=== PATIENT | female | born 1960 | race Caucasian/White ===

== ENCOUNTER 2017-12-05 09:15 | Emergency (ER) | payer MEDICARE, BC ==
[2017-12-05] MEDS ORDERED: ONDANSETRON 4 MG TAB.RAPDIS PO ONE ×2 (09:44→14:47)
[2017-12-05] MEDS ORDERED: FENTANYL CITRATE INJ/PF 100 MCG/2 ML AMPUL IM ONE (09:44)
[2017-12-05] MEDS ORDERED: NORMAL SALINE 1000 ML 1,000 ML IV ONE (09:45)
[2017-12-05] MEDS ORDERED: FENTANYL CITRATE INJ/PF 100 MCG/2 ML AMPUL IV ONE (09:45)
--- NOTE | 2017-12-05 09:45 | ER Document Report ---
ED Medical Screen (RME) - General Chief Complaint: Epigastric Pain Stated Complaint: STOMACH PAIN Time Seen by Provider: 12/05/17 09:43 Notes: RAPID MEDICAL EVALUATION DISCLOSURE I have seen this patient as part of a Rapid Medical Evaluation and, if applicable, placed any initially appropriate orders. The patient will be seen and fully evaluated, including a full history and physical exam, by a provider ( in Main ED or Fast Track) when a room becomes available. 56-year-old female here with complaints of constant nonradiating epigastric abdominal pain that started last night, approximately 30 minutes after eating ice cream. She has not tried anything for the symptoms. She does have some nausea and dry heaving but no active vomiting. She does not have any fevers chills dysuria diarrhea. She does still have her appendix and gallbladder. Denies any prior history of pancreatitis colitis diverticulitis. EXAM Mild to moderate epigastric TTP Minimal left upper quadrant TTP TRAVEL OUTSIDE OF THE [place] IN LAST 30 DAYS: No - Related Data Allergies/Adverse Reactions: No Known Allergies Allergy (Unverified 12/05/17 09:17) Physical Exam - Vital signs Vitals: Temp Pulse Resp BP Pulse Ox 97.6 F 120 H 20 142/76 H 100 12/05/17 09:26 12/05/17 09:26 12/05/17 09:26 12/05/17 09:26 12/05/17 09:26 Course - Vital Signs Vital signs: Temp Pulse Resp BP Pulse Ox 97.6 F 120 H 20 142/76 H 100 12/05/17 09:26 12/05/17 09:26 12/05/17 09:26 12/05/17 09:26 12/05/17 09:26
[2017-12-05 10:23] LABS: APPEARANCE,URINE CLEAR; BILIRUBIN,URINE NEGATIVE (NEGATIVE); GLUCOSE, URINE >=500 mg/dL (NEGATIVE); KETONES,URINE 80 mg/dL (NEGATIVE); LEUKOCYTE ESTERASE,URINE NEGATIVE (NEGATIVE); NITRITE,URINE NEGATIVE (NEGATIVE); PROTEIN,URINE NEGATIVE (NEGATIVE); URINE SPECIFIC GRAVITY 1.038
[2017-12-05 10:24] LABS: COLOR,URINE YELLOW
--- NOTE | 2017-12-05 10:45 | ER Document Report ---
ED General - General Chief Complaint: Epigastric Pain Stated Complaint: STOMACH PAIN Time Seen by Provider: 12/05/17 09:43 Mode of Arrival: Ambulatory Information source: Patient, Relative Notes: 56-year-old female with chronic neck and back pain presents with complaint of abdominal pain that started 12 hours prior to arrival. Patient's pain is located in the epigastric region, described as a constant throbbing pain without radiation. Patient has had associated nausea, dry heaving but no vomiting. Her last bowel movement was yesterday. She denies any black or bloody stools. She denies sick contacts. Pain started approximately 30 minutes after eating ice cream. She denies prior similar symptoms, alcohol use , history of pancreatitis. TRAVEL OUTSIDE OF THE [place] IN LAST 30 DAYS: No - HPI Onset: Yesterday Quality of pain: Stabbing Severity: Moderate Associated symptoms: Nausea. denies: Chest pain, Diarrhea, Fever, Vomiting, Shortness of breath Exacerbated by: Denies Relieved by: Denies Similar symptoms previously: No Recently seen / treated by doctor: No - Related Data Allergies/Adverse Reactions: No Known Allergies Allergy (Unverified 12/05/17 09:17) Past Medical History - General Information source: Patient - Social History Smoking Status: Never Smoker Chew tobacco use (# tins/day): No Frequency of alcohol use: None Drug Abuse: None Lives with: Family Family History: Reviewed & Not Pertinent Patient has suicidal ideation: No Patient has homicidal ideation: No Renal/ Medical History: Denies: Hx Peritoneal Dialysis Review of Systems - Review of Systems Notes: REVIEW OF SYSTEMS: CONSTITUTIONAL : Denies fever, chills, or sweats. Denies recent illness. Denies weight loss, recent hospitalizations. EENT: Denies visual changes, eye pain. Denies nasal or sinus congestion or discharge. Denies sore throat, oral lesions, difficulty swallowing. CARDIOVASCULAR: Denies chest pain. Denies palpitations. Denies lower extremity edema. RESPIRATORY: Denies cough, cold, or chest congestion. Denies shortness of breath, wheezing. GASTROINTESTINAL: Denies abdominal pain or distention. Denies nausea, vomiting , or diarrhea. Denies blood in vomitus, stools, or per rectum. Denies black, tarry stools. Denies constipation. GENITOURINARY: Denies difficulty urinating, painful urination, frequency, blood in urine, or vaginal discharge. MUSCULOSKELETAL: Denies back or neck pain or stiffness. Denies joint pain or swelling. SKIN: Denies rash, lesions or sores. HEMATOLOGIC : Denies easy bruising or bleeding. LYMPHATIC: Denies swollen glands. NEUROLOGICAL: Denies confusion or altered mental status. Denies passing out or loss of consciousness. Denies dizziness or lightheadedness. Denies headache. Denies weakness or paralysis. Denies problems difficulty with ambulation, slurred speech. Denies sensory loss, numbness, or tingling. Denies seizures. PSYCHIATRIC: Denies anxiety or stress. Denies depression, suicidal ideation, or homicidal ideation. Denies visual or auditory hallucinations. Physical Exam - Vital signs Vitals: Temp Pulse Resp BP Pulse Ox 97.6 F 120 H 20 142/76 H 100 12/05/17 09:26 12/05/17 09:26 12/05/17 09:26 12/05/17 09:26 12/05/17 09:26 - Notes Notes: PHYSICAL EXAMINATION: GENERAL: Well-appearing, well-nourished and in no acute distress. HEAD: Atraumatic, normocephalic. EYES: Pupils equal round and reactive to light, extraocular movements intact, conjunctiva are normal. ENT: Nares patent, oropharynx clear without exudates. Moist mucous membranes. NECK: Normal range of motion, supple without lymphadenopathy LUNGS: Breath sounds clear to auscultation bilaterally and equal. No wheezes rales or rhonchi. HEART: Regular rate and rhythm without murmurs ABDOMEN: Soft, tenderness to palpation in the epigastric region, nondistended abdomen. No guarding, no rebound. No masses appreciated. Female : deferred Musculoskeletal: Normal range of motion, no pitting or edema. No cyanosis. NEUROLOGICAL: Cranial nerves grossly intact. Normal speech, normal gait. Normal sensory, motor exams PSYCH: Normal mood, normal affect. SKIN: Warm, Dry, normal turgor, no rashes or lesions noted. Course - Re-evaluation Re-evalutation: Laboratory 12/05/17 12/05/17 12/05/17 09:59 10:45 10:45 WBC 7.0 RBC 4.73 Hgb 14.6 Hct 41.6 MCV 88 MCH 30.8 MCHC 35.0 RDW 14.7 H Plt Count 52 L Seg Neutrophils % 85.1 H Lymphocytes % 11.7 L Monocytes % 3.0 Eosinophils % 0.1 Basophils % 0.1 Absolute Neutrophils 6.0 Absolute Lymphocytes 0.8 Absolute Monocytes 0.2 Absolute Eosinophils 0.0 Absolute Basophils 0.0 Sodium 140.9 Potassium 3.1 L Chloride 101 Carbon Dioxide 26 Anion Gap 14 BUN 13 Creatinine 0.48 L Est GFR ( Amer) > 60 Est GFR (Non-Af Amer) > 60 Glucose 348 H Calcium 9.5 Total Bilirubin 5.1 H Direct Bilirubin 3.5 H Neonat Total Bilirubin Not Reportable Neonat Direct Bilirubin Not Reportable Neonat Indirect Bili Not Reportable AST 364 H ALT 186 H Alkaline Phosphatase 174 H Total Protein 6.4 Albumin 3.9 Lipase 184.2 Urine Color YELLOW Urine Appearance CLEAR Urine pH 8.0 Ur Specific Strandquist 1.038 Urine Protein NEGATIVE Urine Glucose (UA) >=500 H Urine Ketones 80 H Urine Blood SMALL H Urine Nitrite NEGATIVE Urine Bilirubin NEGATIVE Urine Urobilinogen 4.0 H Ur Leukocyte Esterase NEGATIVE Urine WBC (Auto) 6 Urine RBC (Auto) 16 Urine Bacteria (Auto) TRACE Squamous Epi Cells Auto 2 Urine Mucus (Auto) RARE Urine Ascorbic Acid NEGATIVE Abdomen Ultrasound 12/05/17 11:54 IMPRESSION: No gallstones. There was questionable small amount of pericholecystic fluid and questionable thickening of the gallbladder wall. There was no positive sonographic Kim sign. Abdomen/Pelvis CT 12/05/17 12:15 IMPRESSION: Cirrhosis and portal hypertension with trace right upper quadrant ascites Mild retroperitoneal inflammation around the pancreas, worrisome for acute pancreatitis 56-year-old female with chronic neck and back pain presents with complaint of abdominal pain that started 12 hours prior to arrival. Patient's pain is located in the epigastric region, described as a constant throbbing pain without radiation. Patient has had associated nausea, dry heaving but no vomiting. Her last bowel movement was yesterday. She denies any black or bloody stools. Patient is tachycardic but afebrile. She does not appear toxic or dehydrated but she does appear to be in a significant amount of pain. Patient did receive IV Dilaudid, Reglan during her ED course. 12/05/17 14:46 Patient reevaluated and reports improvement of her pain and nausea. She was informed of the CT findings of pancreatitis and the ultrasound findings that were suspicious for cholecystitis. Admission was discussed with the patient who is declining because she is on her way home to [place] tomorrow. She is alert and oriented 3, capable of making decisions and family is at the bedside. Patient will leave AGAINST MEDICAL ADVICE. Shortly after patient was discharged I received a call from [facility] informing me that patient had recently filled a prescription for 90 Percocets. Patient encouraged to return if she changes her mind or her pain worsens. 12/05/17 16:12 12/05/17 16:12 - Vital Signs Vital signs: Temp Pulse Resp BP Pulse Ox 97.6 F 120 H 23 H 136/85 H 100 12/05/17 09:26 12/05/17 09:26 12/05/17 14:40 12/05/17 14:40 12/05/17 14:40 - Laboratory Result Diagrams: 12/05/17 10:45 12/05/17 10:45 Laboratory results interpreted by me: 12/05/17 12/05/17 12/05/17 09:59 10:45 10:45 RDW 14.7 H Plt Count 52 L Seg Neutrophils % 85.1 H Lymphocytes % 11.7 L Potassium 3.1 L Creatinine 0.48 L Glucose 348 H Total Bilirubin 5.1 H Direct Bilirubin 3.5 H AST 364 H ALT 186 H Alkaline Phosphatase 174 H Urine Glucose (UA) >=500 H Urine Ketones 80 H Urine Blood SMALL H Urine Urobilinogen 4.0 H - Diagnostic Test Radiology reviewed: Image reviewed, Reports reviewed - EKG Interpretation by Me EKG shows normal: Sinus rhythm Rate: Tachycardia Rhythm: NSR Discharge - Discharge Clinical Impression: Cholecystitis-concern for, Hyperglycemia, Tachycardia, Elevated liver enzymes Pancreatitis Qualifiers: Chronicity: acute Pancreatitis type: unspecified pancreatitis type Acute pancreatitis complication: unspecified Qualified Code(s): K85.90 - Acute pancreatitis without necrosis or infection, unspecified Liver cirrhosis Qualifiers: Hepatic cirrhosis type: unspecified hepatic cirrhosis Ascites presence: with ascites Qualified Code(s): K74.60 - Unspecified cirrhosis of liver Condition: Good Disposition: AGAINST MEDICAL ADVICE Instructions: Abdominal Pain ([facility]), Cirrhosis ([facility]), Hyperglycemia ([facility]), Pancreatitis ([facility]) Additional Instructions: Please avoid food. Maintain a clear liquid diet until you are evaluated by her physicians at home. Please return immediately to the emergency department if you experience worsening pain or decide that you want to be admitted. Prescriptions: Hydrocodone/Acetaminophen [Patton 5-325 mg Tablet] 1 tab PO Q4H #12 tablet Promethazine HCl 25 mg PO Q8H PRN #10 tablet PRN Reason: Forms: Elevated Blood Pressure
[2017-12-05 11:19] LABS: ALANINE AMINOTRANSFERASE 186 U/L (9-52); ALBUMIN 3.9 g/dL (3.5-5.0); ALKALINE PHOSPHATASE 174 U/L (38-126); ANION GAP 14 (5-19); ASPARTATE AMINO TRANSFERASE 364 U/L (14-36); BILIRUBIN,DIRECT 3.5 mg/dL (0.0-0.4); BILIRUBIN,TOTAL 5.1 mg/dL (0.2-1.3); BLOOD UREA NITROGEN 13 mg/dL (7-20); CALCIUM 9.5 mg/dL (8.4-10.2); CARBON DIOXIDE 26 mmol/L (22-30); CHLORIDE 101 mmol/L (98-107); GLUCOSE 348 mg/dL (75-110); LIPASE 184.2 U/L (23-300); POTASSIUM 3.1 mmol/L (3.6-5.0); SODIUM 140.9 mmol/L (137-145); TOTAL PROTEIN 6.4 g/dL (6.3-8.2)
[2017-12-05] MEDS ORDERED: HYDROMORPHONE HCL INJ/PF 2 MG/ML AMPULE IV ONE ×2 (11:25→14:47)
[2017-12-05] MEDS ORDERED: POTASSIUM CHLORIDE 10 MEQ CAPSULE.ER PO ONE (12:00)
[2017-12-05] MEDS: NORMAL SALINE 1000 ML 1,000 ML IV PRN ×2 (12:05→12:10)
[2017-12-05 12:19] LABS: ABSOLUTE LYMPHOCYTES (AUTO) 0.8 10^3/uL (0.5-4.7); ABSOLUTE MONOCYTES (AUTO) 0.2 10^3/uL (0.1-1.4); BASOPHILS % (AUTO) 0.1 % (0-2); EOSINOPHILS % (AUTO) 0.1 % (0-6); HEMATOCRIT 41.6 % (36.0-47.0); HEMOGLOBIN 14.6 g/dL (12.0-15.5); LYMPHOCYTES % (AUTO) 11.7 % (13-45); MEAN CORPUSCULAR HEMOGLOBIN 30.8 pg (27.0-33.4); MEAN CORPUSCULAR VOLUME 88 fl (80-97); RED BLOOD COUNT 4.73 10^6/uL (3.72-5.28); RED CELL DISTRIBUTION WIDTH 14.7 % (11.5-14.0); SEGMENTED NEUTROPHILS % (AUTO) 85.1 % (42-78); TOTAL CELLS COUNTED % (AUTO) 100 %
[2017-12-05 12:50] LABS: PLATELET COUNT 52 10^3/uL (150-450)
--- NOTE | 2017-12-05 13:21 | RADIOLOGY REPORT (SQ) ---
EXAM DESCRIPTION: CT ABD/PELVIS WITH IV ONLY COMPLETED DATE/TIME: 12/05/2017 12:51 pm REASON FOR STUDY: epigastric abd pain COMPARISON: None. TECHNIQUE: CT scan of the abdomen and pelvis performed using helical scanning technique with dynamic intravenous contrast injection. No oral contrast. Images reviewed with lung, soft tissue, and bone windows. Reconstructed coronal and sagittal MPR images reviewed. Delayed images for evaluation of the urinary system also acquired. All images stored on PACS. All CT scanners at this facility use dose modulation, iterative reconstruction, and/or weight based d osing when appropriate to reduce radiation dose to as low as reasonably achievable (ALARA). [facility]: Dose Right [facility]: CareDose [facility]: Dose Right [facility]: Teradose 4D [facility]: Widemile CONTRAST TYPE AND DOSE: contrast/concentration: Isovue 370.00 mg/ml; Total Contrast Delivered: 83.0 ml; Total Saline Delivered: 68.0 ml RENAL FUNCTION: Creatinine 0.48 RADIATION DOSE: CT Rad equipment meets quality standard of care and radiation dose reduction techniq ues were employed. CTDIvol: 10.5 - 15.2 mGy. DLP: 1420 mGy-cm.. LIMITATIONS: None. FINDINGS: LOWER CHEST: No significant findings. No nodules or infiltrates. LIVER: Nodular contour, recannulized umbilical vein from cirrhosis and portal hypertension. SPLEEN: Splenomegaly, 14 cm in length. Upper abdominal varices at the GE junction and splenic hilum. PANCREAS: There is inflammation in the retroperitoneum around the pancreatic head and neck, question acute pancreatitis. No peripancreatic fluid collection. Nondilated pancreatic duct GALLBLADDER: Distended, no gross gallstones ADRENAL GLANDS: No significant masses or asymmetry. RIGHT KIDNEY AND URETER: No solid masses. No significant calcifications. No hydronephrosis or hyd roureter. LEFT KIDNEY AND URETER: No solid masses. No significant calcifications. No hydronephrosis or hydr oureter. AORTA AND VESSELS: No aneurysm. No dissection. Renal arteries, SMA, celiac without stenosis. RETROPERITONEUM: No retroperitoneal adenopathy, hemorrhage or masses. BOWEL AND PERITONEAL CAVITY: No CT evidence bowel obstruction or diverticulitis. There is a small am ount of ascites in the right upper quadrant in the gallbladder fossa and right subphrenic space APPENDIX: Normal. PELVIS: No mass. Trace cul-de-sac free fluid. Normal bladder. Normal size uterus and ovaries ABDOMINAL WALL: No masses. No hernias. BONES: No significant or acute findings. OTHER: No other significant finding. IMPRESSION: Cirrhosis and portal hypertension with trace right upper quadrant ascites Mild retroperitoneal inflammation around the pancreas, worrisome for acute pancreatitis TECHNICAL DOCUMENTATION: JOB ID: [id number] Quality ID # [id number]: Final reports with documentation of one or more dose reduction techniques (e.g., Au tomated exposure control, adjustment of the mA and/or kV according to patient size, use of iterative reconstruction technique) 2010 [email or web address]- All Rights Reserved Reading location - IP/workstation name: [email or web address]
--- NOTE | 2017-12-05 13:35 | EKG REPORT ---
SEVERITY:- BORDERLINE ECG - SINUS TACHYCARDIA PROBABLE LEFT ATRIAL ABNORMALITY BORDERLINE LEFT AXIS DEVIATION NONSPECIFIC ST-T CHANGES DIFFUSE LEADS. : Confirmed by: Billy Son MD 05-Dec-2017 13:34:40
--- NOTE | 2017-12-05 13:42 | RADIOLOGY REPORT (SQ) ---
EXAM DESCRIPTION: U/S ABDOMEN LIMITED W/O DOP COMPLETED DATE/TIME: 12/05/2017 1:10 pm REASON FOR STUDY: pain ruq COMPARISON: None. TECHNIQUE: Dynamic and static grayscale images acquired of the abdomen and recorded on PACS. Additio compa selected color Doppler and spectral images recorded. LIMITATIONS: None. FINDINGS: PANCREAS: No masses. Visualized pancreatic duct normal caliber. LIVER: 14 cm. Normal echotexture. No masses. LIVER VASCULATURE: Normal directional flow of the main portal vein and hepatic veins. GALLBLADDER: No gallstones are appreciated. There is a small amount of pericholecystic fluid and que stionable thickening of the gallbladder wall. ULTRASOUND-DETECTED KIM'S SIGN: Negative. INTRAHEPATIC DUCTS AND COMMON DUCT: CBD and intrahepatic ducts normal caliber. No filling defects. INFERIOR VENA CAVA: Normal flow. AORTA: No aneurysm. The distal abdominal aorta was obscured by gas. RIGHT KIDNEY: Normal size. Normal echogenicity. No solid or suspicious masses. No hydronephrosis. No calcifications. PERITONEAL AND RIGHT PLEURAL SPACE: No ascites or effusions. OTHER: No other significant findings. IMPRESSION: No gallstones. There was questionable small amount of pericholecystic fluid and questio nable thickening of the gallbladder wall. There was no positive sonographic Kim sign. TECHNICAL DOCUMENTATION: JOB ID: [id number] [employer]- All Rights Reserved Reading location - IP/workstation name: [email or web address]
[2017-12-05 14:46] VITALS: BP 136/85
== END 2017-12-05 14:55 | disposition left against medical advice (07) ==
LOC: ER 09:15
DX: K85.90 Acute pancreatitis without necrosis or infection, unspecified (principal); K74.60 Unspecified cirrhosis of liver; K76.6 Portal hypertension; R18.8 Other ascites; R73.9 Hyperglycemia, unspecified; R10.13 Epigastric pain; M54.2 Cervicalgia; M54.9 Dorsalgia, unspecified; G89.29 Other chronic pain; R00.0 Tachycardia, unspecified; R11.0 Nausea
CPT/HCPCS: 93005; 99284; 96361; 96374; 36415; 83690; 85025; 80053; 81001; 76705; 74177; 93010; A9270 ×2; J3010; J1170; J7030; S0119